=== PATIENT | male | born 1975 | race Caucasian/White ===

== ENCOUNTER 2020-09-12 14:21 | Emergency (ER) | payer OTHER ==
[~2020-09-12] VITALS: Ht 182.9 cm; Wt 81.8 kg
[2020-09-12] MEDS ORDERED: PIPERACILLIN/TAZO 3.375 GM/D5W 50 ML IV ONE (15:00)
[2020-09-12] MEDS ORDERED: HYDROCODONE/ACETAMINOPHEN 5-325 MG TABLET PO ONE (15:15)
[2020-09-12 15:29] LABS: COVID AG,FIA SOURCE NASOPHARYNGEAL
[2020-09-12 16:56] VITALS: BP 127/87
== END 2020-09-12 19:20 | disposition short-term general hospital (02) ==
LOC: EMS 14:44
DX: S81.852A Open bite, left lower leg, initial encounter (principal); Z20.822 Contact with and (suspected) exposure to COVID-19; S81.812A Laceration without foreign body, left lower leg, initial encounter; W54.0XXA Bitten by dog, initial encounter; Y93.89 Activity, other specified; Y92.89 Other specified places as the place of occurrence of the external cause; Y99.8 Other external cause status
CPT/HCPCS: 73590; 87426; 96365; 99285; J2543; 99284